=== PATIENT | female | born 1995 | race Two or more races ===

== ENCOUNTER 2023-04-22 04:48 | Emergency (ER) | payer BC ==
[~2023-04-22] VITALS: Ht 165.1 cm; Wt 50.0 kg
[2023-04-22 05:45] LABS: Basophils # (auto) 0 10 ^3/uL (0-0.2); Basophils % (auto) 0.5 % (0.0-2.0); Eosinophils # (auto) 0.2 10 ^3/uL (0-0.8); Eosinophils % (auto) 2.5 % (0.0-7.0); Hematocrit 42.5 % (36.0-46.0); Hemoglobin 14.4 g/dL (12.2-16.2); Lymphocytes # (auto) 3.4 10 ^3/uL (0.4-5.4); Lymphocytes % (auto) 42.6 % (10.0-50.0); Mean Corpuscular Hemoglobin 30.7 pg (28.0-32.0); Mean Corpuscular Hgb Conc. 33.9 g/dL (32.0-36.0); Mean Corpuscular Volume 90.5 fL (80.0-100.0); Monocytes # (auto) 0.6 10 ^3/uL (0-1.3); Monocytes % (auto) 7.2 % (0.0-12.0); Neutrophils # (auto) 3.7 10 ^3/uL (1.6-8.6); Neutrophils % (auto) 47.2 % (37.0-80.0); Nucleated Red Blood Cells % 0.1 %; Red Cell Distribution Width 12.6 % (11.8-14.3); White Blood Cell 7.9 10^3/uL (4.4-10.8)
[2023-04-22 06:01] LABS: Urine Bacteria NONE SEEN /hpf (None Seen); Urine Blood Negative /uL (Negative); Urine Specific Gravity 1.013 (1.001-1.035); Urine WBC 1 /hpf (0 - 5)
[2023-04-22 06:06] LABS: Albumin 3.6 g/dL (3.4-5.0); Calcium 8.7 mg/dL (8.5-10.1); Potassium 3.9 mmol/L (3.5-5.1)
[2023-04-22 06:09] LABS: BUN/Creatinine Ratio 12.3 (10.0-20.0); Bilirubin, Total 0.4 mg/dL (0.2-1.0)
[2023-04-22] MEDS ORDERED: TRAM50TA2 PO (09:25)
[2023-04-22 09:39] VITALS: BP 117/70; PULSE 87; RESP 16; TEMP 97.9; O2SAT 100
== END 2023-04-22 09:42 | disposition home or self-care (01) ==
LOC: ER 04:48
DX: R10.31 Right lower quadrant pain (principal); R10.2 Pelvic and perineal pain; Z98.890 Other specified postprocedural states
CPT/HCPCS: 36415; 76856; 80053; 81001; 83690; 84702; 85025

== ENCOUNTER 2023-09-03 10:01 | Emergency (ER) | payer BC ==
[~2023-09-03] VITALS: Ht 165.1 cm; Wt 48.6 kg
[~2023-09-03 10:01] MED LIST: TRAM50TA2 PO
[2023-09-03 11:41] VITALS: BP 120/85; PULSE 98; RESP 20; TEMP 98.4; O2SAT 97
== END 2023-09-03 13:18 | disposition home or self-care (01) ==
LOC: ER 10:01
DX: Z32.01 Encounter for pregnancy test, result positive (principal); R10.2 Pelvic and perineal pain; Z79.899 Other long term (current) drug therapy
CPT/HCPCS: 36415; 84702

== ENCOUNTER 2023-11-09 15:50 | Emergency (ER) | payer BC ==
[~2023-11-09] VITALS: Ht 165.1 cm; Wt 48.3 kg
[2023-11-09 16:37] VITALS: BP 119/55; PULSE 89; RESP 16; O2SAT 97
[2023-11-09 17:29] LABS: Basophils # (auto) 0 10 ^3/uL (0-0.2); Basophils % (auto) 0.5 % (0.0-2.0); Eosinophils # (auto) 0.2 10 ^3/uL (0-0.8); Eosinophils % (auto) 2.1 % (0.0-7.0); Hematocrit 41.4 % (36.0-46.0); Lymphocytes # (auto) 2.7 10 ^3/uL (0.4-5.4); Lymphocytes % (auto) 30.6 % (10.0-50.0); Mean Corpuscular Hemoglobin 30.4 pg (28.0-32.0); Mean Corpuscular Hgb Conc. 33.7 g/dL (32.0-36.0); Mean Corpuscular Volume 90.1 fL (80.0-100.0); Monocytes # (auto) 0.5 10 ^3/uL (0-1.3); Monocytes % (auto) 6.1 % (0.0-12.0); Neutrophils # (auto) 5.3 10 ^3/uL (1.6-8.6); Neutrophils % (auto) 60.7 % (37.0-80.0); Red Cell Distribution Width 13.4 % (11.8-14.3); White Blood Cell 8.8 10^3/uL (4.4-10.8)
[2023-11-09 18:39] LABS: Urine Bacteria NONE SEEN /hpf (None Seen); Urine Blood Negative /uL (Negative); Urine Clarity Clear (Clear); Urine Color Colorless (Yellow); Urine Protein, UAD Negative (Negative); Urine Specific Gravity 1.006 (1.001-1.035); Urine Urobilinogen Normal (Negative); Urine WBC <1 /hpf (0 - 5)
== END 2023-11-10 00:14 | disposition home or self-care (01) ==
LOC: ER 15:50
DX: Z34.01 Encounter for supervision of normal first pregnancy, first trimester (principal); R10.2 Pelvic and perineal pain; Z3A.13 13 weeks gestation of pregnancy; Z98.890 Other specified postprocedural states; Z79.899 Other long term (current) drug therapy
CPT/HCPCS: 36415; 76801; 81001; 84702; 85025; 86900; 86901

== ENCOUNTER → 2023-12-18 | Outpatient (CLI) | payer BC | END | disposition home or self-care (01) | LOC: LAB 09:11 | PROVIDERS: ATTEND Obstetrics & Gynecology | DX: Z34.82 Encounter for supervision of other normal pregnancy, second trimester (principal); Z3A.18 18 weeks gestation of pregnancy | CPT/HCPCS: 36415; 87340 ==

== ENCOUNTER 2024-03-08 12:15 | Observation (INO) | payer BC ==
[~2024-03-08] VITALS: Ht 165.1 cm; Wt 59.6 kg
[2024-03-08] MEDS: LACTATED RINGER'S 1,000 ML IV ONE (13:55)
[2024-03-08] MEDS: NIFEdipine 10 MG CAP PO ONE (15:01)
[2024-03-08] MEDS: TERBUTALINE SULFATE 1 MG/ML 1ML VIAL SC ONE (15:02)
[2024-03-08] MEDS ORDERED: PREN-96 PO (15:11)
[2024-03-08] MEDS ORDERED: NIF10C PO (15:20)
[2024-03-08] MEDS ORDERED: BETAMETHASONE ACET (30mg/5ml) 5ml Vial 6mg/ml IM ONE (15:30)
[2024-03-09] MEDS ORDERED: NIF10C PO (17:47)
== END 2024-03-08 16:04 | disposition home or self-care (01) ==
LOC: LDRP 12:15
PROVIDERS: ADMIT Obstetrics & Gynecology; ATTEND Obstetrics & Gynecology
DX: O60.03 Preterm labor without delivery, third trimester (principal); O24.419 Gestational diabetes mellitus in pregnancy, unspecified control; Z3A.30 30 weeks gestation of pregnancy
CPT/HCPCS: 59025; 81002; 94760; 96360; 96361; 96372; G0378; J0702; J3105

== ENCOUNTER 2024-03-09 13:00 | Observation (INO) | payer BC ==
[~2024-03-09] VITALS: Ht 165.1 cm; Wt 59.0 kg
[~2024-03-09 13:00] MED LIST changes: +NIF10C PO; +PREN-96 PO; -TRAM50TA2 PO
[2024-03-09] MEDS: BETAMETHASONE ACET (30mg/5ml) 5ml Vial 6mg/ml IM ONE (16:10)
[2024-03-09] MEDS ORDERED: NIF10C PO (17:47)
== END 2024-03-09 17:57 | disposition home or self-care (01) ==
LOC: UNDOADMOB 13:00 → LDRP 13:00
PROVIDERS: ADMIT Obstetrics & Gynecology; ATTEND Obstetrics & Gynecology
DX: O60.03 Preterm labor without delivery, third trimester (principal); O24.419 Gestational diabetes mellitus in pregnancy, unspecified control; Z3A.31 31 weeks gestation of pregnancy
CPT/HCPCS: 59025; 76815; 81002; 94760; 96372; G0378

== ENCOUNTER 2024-03-16 07:54 | Observation (INO) | payer BC | END 2024-03-16 10:11 | disposition home or self-care (01) | LOC: LDRP 09:00 → UNDOADMOB 09:00 → LDRP 09:13 | PROVIDERS: ADMIT Obstetrics & Gynecology; ATTEND Obstetrics & Gynecology | DX: O60.03 Preterm labor without delivery, third trimester (principal); O24.419 Gestational diabetes mellitus in pregnancy, unspecified control; Z3A.32 32 weeks gestation of pregnancy | CPT/HCPCS: 59025; 81002; G0378 ==

== ENCOUNTER 2024-03-22 20:19 | Observation (INO) | payer BC ==
[~2024-03-22] VITALS: Ht 165.1 cm; Wt 61.2 kg
[2024-03-22] MEDS: LACTATED RINGER'S 1,000 ML IV ONE (21:34)
[2024-03-22] MEDS: TERBUTALINE SULFATE 1 MG/ML 1ML VIAL SC SCH (21:41)
== END 2024-03-22 23:31 | disposition home or self-care (01) ==
LOC: LDRP 20:19
PROVIDERS: ADMIT Obstetrics & Gynecology; ATTEND Obstetrics & Gynecology
DX: O24.419 Gestational diabetes mellitus in pregnancy, unspecified control (principal); O60.03 Preterm labor without delivery, third trimester; Z3A.32 32 weeks gestation of pregnancy
CPT/HCPCS: 59025; 76817; 76818; 81002; 94760; 96360; 96361; 96372; G0378; J3105

== ENCOUNTER 2024-03-23 15:28 | Observation (INO) | payer BC ==
[~2024-03-23] VITALS: Ht 165.1 cm; Wt 62.1 kg
== END 2024-03-30 10:14 | disposition home or self-care (01) ==
LOC: UNDOADMOB 03-30 08:51 → LDRP 03-30 08:51
PROVIDERS: ADMIT Obstetrics & Gynecology; ATTEND Obstetrics & Gynecology
DX: O60.03 Preterm labor without delivery, third trimester (principal); O26.893 Other specified pregnancy related conditions, third trimester; R10.9 Unspecified abdominal pain; Z3A.34 34 weeks gestation of pregnancy
CPT/HCPCS: 59025; 76818; 81002; 94760; G0378

== ENCOUNTER 2024-04-06 08:00 | Observation (INO) | payer BC | END 2024-04-06 13:25 | disposition home or self-care (01) | LOC: LDRP 10:19 → UNDOADMOB 10:19 → LDRP 10:27 → UNDODISOB 13:25 | PROVIDERS: ADMIT Obstetrics & Gynecology; ATTEND Obstetrics & Gynecology | DX: O60.03 Preterm labor without delivery, third trimester (principal); O24.419 Gestational diabetes mellitus in pregnancy, unspecified control; Z3A.35 35 weeks gestation of pregnancy | CPT/HCPCS: 59025; 76818; 81002; G0378 ==

== ENCOUNTER 2024-04-13 08:05 | Observation (INO) | payer BC | END 2024-04-13 09:59 | disposition home or self-care (01) | LOC: LDRP 08:05 → UNDOADMOB 08:05 → LDRP 08:20 | PROVIDERS: ADMIT Obstetrics & Gynecology; ATTEND Obstetrics & Gynecology | DX: O24.419 Gestational diabetes mellitus in pregnancy, unspecified control (principal); O60.03 Preterm labor without delivery, third trimester; Z3A.36 36 weeks gestation of pregnancy | CPT/HCPCS: 59025; 76817; 76818; 81002; 82948; 82962; 94760; G0378 ==

== ENCOUNTER → 2024-04-13 | Outpatient (CLI) | payer BC ==
[2024-04-13 11:43] LABS: Basophils # (auto) 0 10 ^3/uL (0-0.2); Basophils % (auto) 0.4 % (0.0-2.0); Eosinophils # (auto) 0.1 10 ^3/uL (0-0.8); Eosinophils % (auto) 0.7 % (0.0-7.0); Hemoglobin 11.9 g/dL (12.2-16.2); Lymphocytes % (auto) 11.8 % (10.0-50.0); Mean Corpuscular Hemoglobin 30.2 pg (28.0-32.0); Mean Corpuscular Hgb Conc. 34.1 g/dL (32.0-36.0); Mean Corpuscular Volume 88.5 fL (80.0-100.0); Monocytes % (auto) 11.2 % (0.0-12.0); Neutrophils # (auto) 6.5 10 ^3/uL (1.6-8.6); Neutrophils % (auto) 75.9 % (37.0-80.0); Nucleated Red Blood Cells % 0.1 %; Red Blood Cells 3.95 10^6/uL (4.0-5.20); Red Cell Distribution Width 13.6 % (11.8-14.3); White Blood Cell 8.5 10^3/uL (4.4-10.8)
[2024-04-14 07:07] LABS: RPR Non Reactive (Non Reactive)
[2024-04-15 11:07] LABS: Chlamydia Trachomatis, NAA Negative (Negative); Neisseria gonorrhoeae, NAA Negative (Negative)
[2024-04-15 12:07] LABS: QuantiFERON-TB Gold Plus Negative (Negative)
== END | disposition home or self-care (01) ==
LOC: LAB 11:05
PROVIDERS: ATTEND Obstetrics & Gynecology
DX: Z34.80 Encounter for supervision of other normal pregnancy, unspecified trimester (principal); Z72.51 High risk heterosexual behavior
CPT/HCPCS: 36415; 83036; 85025; 86592

== ENCOUNTER 2024-04-19 17:50 | Observation (INO) | payer BC ==
[~2024-04-19] VITALS: Ht 165.1 cm; Wt 64.0 kg
== END 2024-04-19 19:39 | disposition home or self-care (01) ==
LOC: LDRP 17:50
PROVIDERS: ADMIT Obstetrics & Gynecology; ATTEND Obstetrics & Gynecology
DX: O47.03 False labor before 37 completed weeks of gestation, third trimester (principal); O24.410 Gestational diabetes mellitus in pregnancy, diet controlled; Z3A.36 36 weeks gestation of pregnancy; Z79.899 Other long term (current) drug therapy
CPT/HCPCS: 59025; 76818; 81002; 82948; 82962; G0378

== ENCOUNTER 2024-04-26 10:15 | Observation (INO) | payer BC | END 2024-04-26 11:55 | disposition home or self-care (01) | LOC: UNDOADMOB 10:15 → LDRP 10:15 | PROVIDERS: ADMIT Obstetrics & Gynecology; ATTEND Obstetrics & Gynecology | DX: O24.420 Gestational diabetes mellitus in childbirth, diet controlled (principal); Z3A.37 37 weeks gestation of pregnancy; Z79.899 Other long term (current) drug therapy; Z98.890 Other specified postprocedural states | CPT/HCPCS: 59025; 76818; 81002; 82948; 82962; 94760; G0378 ==

== ENCOUNTER 2024-04-30 12:07 | Observation (INO) | payer BC | END 2024-04-30 13:20 | disposition home or self-care (01) | LOC: LDRP 12:07 | PROVIDERS: ADMIT Obstetrics & Gynecology; ATTEND Obstetrics & Gynecology | DX: O62.9 Abnormality of forces of labor, unspecified (principal); O24.419 Gestational diabetes mellitus in pregnancy, unspecified control; O26.893 Other specified pregnancy related conditions, third trimester; R11.0 Nausea; Z3A.38 38 weeks gestation of pregnancy | CPT/HCPCS: 59025; 81002; 82948; 82962; 94760; G0378 ==

== ENCOUNTER 2024-05-03 10:10 | Observation (INO) | payer BC | END 2024-05-03 12:39 | disposition home or self-care (01) | LOC: LDRP 10:10 | PROVIDERS: ADMIT Obstetrics & Gynecology; ATTEND Obstetrics & Gynecology | DX: O24.419 Gestational diabetes mellitus in pregnancy, unspecified control (principal); Z3A.38 38 weeks gestation of pregnancy | CPT/HCPCS: 59025; 76818; 81002; 82948; 82962; 94760; G0378 ==

== ENCOUNTER 2024-05-06 16:35 | Observation (INO) | payer BC | END 2024-05-06 17:40 | disposition home or self-care (01) | LOC: LDRP 16:35 | PROVIDERS: ADMIT Obstetrics & Gynecology; ATTEND Obstetrics & Gynecology | DX: O62.9 Abnormality of forces of labor, unspecified (principal); Z3A.39 39 weeks gestation of pregnancy | CPT/HCPCS: 59025; 81002; 94760; G0378 ==

== ENCOUNTER 2024-05-10 14:13 | Inpatient (IN) | payer BC ==
[~2024-05-10] VITALS: Ht 165.1 cm; Wt 65.8 kg
[~2024-05-10 14:13] MED LIST changes: -NIF10C PO; +NIFE10CA52 PO
[2024-05-10] MEDS ORDERED: LIDOCAINE 2%HCL (LOCAL ANESTH.) INJ 20ML MDV IJ PRN (14:30)
[2024-05-10] MEDS ORDERED: NALBUPHINE HCL 10 MG/1ml INJECTION IV PRN (14:30)
[2024-05-10 15:12] LABS: Urine Bacteria None Seen /hpf (None Seen); Urine WBC None Seen /hpf (0 - 5)
[2024-05-10 15:18] LABS: Basophils # (auto) 0 10 ^3/uL (0-0.2); Basophils % (auto) 0.4 % (0.0-2.0); Eosinophils # (auto) 0.1 10 ^3/uL (0-0.8); Eosinophils % (auto) 0.9 % (0.0-7.0); Hematocrit 35.9 % (36.0-46.0); Hemoglobin 11.8 g/dL (12.2-16.2); Lymphocytes # (auto) 2.1 10 ^3/uL (0.4-5.4); Lymphocytes % (auto) 21.4 % (10.0-50.0); Mean Corpuscular Hemoglobin 29.3 pg (28.0-32.0); Mean Corpuscular Volume 88.8 fL (80.0-100.0); Monocytes # (auto) 0.7 10 ^3/uL (0-1.3); Monocytes % (auto) 7.5 % (0.0-12.0); Neutrophils # (auto) 6.8 10 ^3/uL (1.6-8.6); Neutrophils % (auto) 69.8 % (37.0-80.0); Nucleated Red Blood Cells % 0.2 %; Red Blood Cells 4.05 10^6/uL (4.0-5.20); Red Cell Distribution Width 15.1 % (11.8-14.3); White Blood Cell 9.7 10^3/uL (4.4-10.8)
[2024-05-10 15:20] LABS: Urine Blood Negative /uL (Negative); Urine Clarity Clear (Clear); Urine Color Colorless (Yellow); Urine Protein, UAD Negative (Negative); Urine Specific Gravity 1.005 (1.001-1.035); Urine Urobilinogen Normal (Negative); Urine pH 6.5 (5.0-9.0)
[2024-05-10 15:42] LABS: INR 0.97 (0.9-1.15); Prothrombin Time 10.3 sec (9.3-11.8)
[2024-05-10 15:44] LABS: Amphetamine Screen, Urine Neg (NEGATIVE)
[2024-05-10 15:45] LABS: Barbiturate Scree,Urine Neg (NEGATIVE); Benzodiazephine Screen, Urine Neg (NEGATIVE); Cannabinoid Screen, Urine Neg (NEGATIVE); Cocaine Screen, Urine Neg (NEGATIVE); Opiate Scree,Urine Neg (NEGATIVE); Phencyclidine Screen, Urine Neg (NEGATIVE)
[2024-05-10 15:49] LABS: Alanine Aminotransferase 16 U/L (7-40); Albumin 3.5 g/dL (3.2-4.8); Alkaline Phosphatase 162 U/L (46-116); Anion Gap 7 (5-15); Aspartate Aminotransferase 16 U/L (13-40); BUN/Creatinine Ratio 10.7 (10.0-20.0); Bilirubin, Total 0.4 mg/dL (0.2-1.0); Blood Urea Nitrogen 6 mg/dL (9-23); Calcium 8.9 mg/dL (8.7-10.4); Carbon Dioxide 25 mmol/L (20-30); Chloride 106 mmol/L (98-107); Glucose 84 mg/dL (74-106); Potassium 4.2 mmol/L (3.5-5.1); Sodium 138 mmol/L (136-145); Total Protein 6.2 g/dL (5.7-8.2)
[2024-05-10] MEDS: LACTATED RINGER'S 1,000 ML IV SCH (15:49)
[2024-05-10] MEDS: miSOPROStol 50 MCG per PRE-CUT 1/2 TAB PO PRN (16:28)
[2024-05-10] MEDS: DERMOPLAST 60ML BOTTLE TOP PRN (16:37)
[2024-05-10] MEDS: WITCH HAZEL-GLYCERIN PAD TOP PRN (16:37)
[2024-05-10] MEDS: PHISODERM TOP SOLN 240ML BTL TOP PRN (16:37)
[2024-05-10] MEDS ORDERED: miSOPROStol 100 mcg TAB PR PRN (19:15)
[2024-05-10] MEDS ORDERED: METHYLERGONOVINE MALEATE 0.2 MG/ML AMP IM PRN (19:15)
[2024-05-10] MEDS ORDERED: ONDANSETRON HCL 4 MG/2 ML VIAL IV PRN ×2 (19:15→23:15)
[2024-05-10] MEDS ORDERED: miSOPROStol 100 mcg TAB SL PRN (19:15)
[2024-05-10] MEDS ORDERED: CARBOPROST TROMETHAMINE 250 MCG/1ML VIAL IM PRN (19:15)
[2024-05-10] MEDS: NALOXONE HCL 0.4 MG/ML VIAL IV ONE (21:00)
[2024-05-10] MEDS: ePHEDrine SULFATE 50 MG/ML AMP IV ONE (21:00)
[2024-05-10] MEDS: LACTATED RINGER'S 1,000 ML IV ONE (21:09)
[2024-05-10] MEDS: ROPIVACAINE HCL 200 ML ONE (21:38)
[2024-05-10] MEDS: DIPHENOXYLATE W/ATROPINE 2.5 MG TAB PO SCH (22:00)
[2024-05-10] MEDS ORDERED: TERBUTALINE SULFATE 1 MG/ML 1ML VIAL SC PRN (22:45)
[2024-05-10] MEDS ORDERED: ceFAZolin 1GM/50ML 50 ML IV SCH (23:15)
[2024-05-10] MEDS ORDERED: LACT. RINGERS/OXYTOCIN 20UNITS 1,000 ML IV ONE (23:15)
[2024-05-10] MEDS ORDERED: GUM (CHEWING) 1 GUM CHEW CHEW ONE (23:15)
[2024-05-10] MEDS: LACT. RINGERS/OXYTOCIN 20UNITS 1,000 ML IV SCH (23:23)
[2024-05-11 07:22] LABS: Basophils # (auto) 0 10 ^3/uL (0-0.2); Basophils % (auto) 0.3 % (0.0-2.0); Eosinophils # (auto) 0.1 10 ^3/uL (0-0.8); Eosinophils % (auto) 0.6 % (0.0-7.0); Hematocrit 34.7 % (36.0-46.0); Hemoglobin 11.9 g/dL (12.2-16.2); Lymphocytes % (auto) 16.4 % (10.0-50.0); Mean Corpuscular Hemoglobin 29.9 pg (28.0-32.0); Mean Corpuscular Hgb Conc. 34.2 g/dL (32.0-36.0); Mean Corpuscular Volume 87.4 fL (80.0-100.0); Monocytes # (auto) 0.8 10 ^3/uL (0-1.3); Monocytes % (auto) 6.2 % (0.0-12.0); Neutrophils # (auto) 9.4 10 ^3/uL (1.6-8.6); Neutrophils % (auto) 76.5 % (37.0-80.0); Nucleated Red Blood Cells % 0.1 %; Red Blood Cells 3.98 10^6/uL (4.0-5.20); Red Cell Distribution Width 15.4 % (11.8-14.3); White Blood Cell 12.3 10^3/uL (4.4-10.8)
[2024-05-11] MEDS: ROPIVACAINE HCL 200 ML ONE (12:46)
[2024-05-11] MEDS: MINERAL OIL TOPICAL 10ml TOP ONE (17:26)
[2024-05-11] MEDS ORDERED: ONDANSETRON ODT 4 MG TAB PO PRN (18:00)
[2024-05-11] MEDS ORDERED: ACETAMINOPHEN 325 MG TAB PO PRN (18:00)
[2024-05-11] MEDS: LACT. RINGERS/OXYTOCIN 20UNITS 500 ML IV ONE ×2 (18:07→18:08)
[2024-05-11] MEDS: IBUPROFEN 600 MG TAB PO PRN (19:50)
[2024-05-11 20:00] VITALS: BP 116/58; PULSE 84; RESP 18; TEMP 98; O2SAT 95
[2024-05-11] MEDS: DOCUSATE SOD 100 MG CAP PO SCH (22:41)
[2024-05-11 23:08] VITALS: BP 103/70; PULSE 89; RESP 18; TEMP 98; O2SAT 97
[2024-05-12] MEDS ORDERED: DOCU-265 PO (01:37)
[2024-05-12] MEDS ORDERED: IBU600T PO (01:37)
[2024-05-12 03:04] VITALS: BP 95/59; PULSE 80; RESP 16; TEMP 97.8; O2SAT 99
[2024-05-12 06:06] LABS: RPR Non Reactive (Non Reactive)
[2024-05-12 07:00] VITALS: BP 92/53; PULSE 91; RESP 17; TEMP 98.6; O2SAT 98
[2024-05-12 07:58] LABS: Basophils # (auto) 0 10 ^3/uL (0-0.2); Basophils % (auto) 0.2 % (0.0-2.0); Eosinophils # (auto) 0.2 10 ^3/uL (0-0.8); Eosinophils % (auto) 1.1 % (0.0-7.0); Hematocrit 30.5 % (36.0-46.0); Hemoglobin 10.2 g/dL (12.2-16.2); Lymphocytes # (auto) 1.8 10 ^3/uL (0.4-5.4); Lymphocytes % (auto) 9.3 % (10.0-50.0); Mean Corpuscular Hemoglobin 29.7 pg (28.0-32.0); Mean Corpuscular Hgb Conc. 33.6 g/dL (32.0-36.0); Mean Corpuscular Volume 88.4 fL (80.0-100.0); Monocytes # (auto) 1.1 10 ^3/uL (0-1.3); Neutrophils # (auto) 15.8 10 ^3/uL (1.6-8.6); Neutrophils % (auto) 83.4 % (37.0-80.0); Red Blood Cells 3.45 10^6/uL (4.0-5.20); Red Cell Distribution Width 15.4 % (11.8-14.3); White Blood Cell 18.9 10^3/uL (4.4-10.8)
[2024-05-12 11:00] VITALS: BP 94/60; PULSE 87; RESP 15; TEMP 98.6; O2SAT 98
[2024-05-12 15:26] VITALS: BP 103/56; PULSE 99; RESP 16; TEMP 98.8; O2SAT 98
[2024-05-12 18:45] VITALS: BP 110/66; PULSE 99; RESP 17; TEMP 98; O2SAT 99
[2024-05-12 20:33] VITALS: BP 114/68; PULSE 62; RESP 16; TEMP 98; O2SAT 98
== END 2024-05-12 20:33 | disposition home or self-care (01) | DRG 807 ==
LOC: LDRP 14:13
PROVIDERS: ADMIT Obstetrics & Gynecology; ATTEND Obstetrics & Gynecology
PROC: 10E0XZZ Delivery of Products of Conception, External Approach (ICD-10-PCS; principal; 2024-05-11)
PROC: 3E0DXGC Introduction of Other Therapeutic Substance into Mouth and Pharynx, External Approach (ICD-10-PCS; 2024-05-11)
PROC: 0UQMXZZ Repair Vulva, External Approach (ICD-10-PCS; 2024-05-11)
PROC: 3E0R3BZ Introduction of Anesthetic Agent into Spinal Canal, Percutaneous Approach (ICD-10-PCS; 2024-05-11)
PROC: 00HU33Z Insertion of Infusion Device into Spinal Canal, Percutaneous Approach (ICD-10-PCS; 2024-05-11)
DX: O69.81X0 Labor and delivery complicated by cord around neck, without compression, not applicable or unspecified (principal); Z37.0 Single live birth; O24.420 Gestational diabetes mellitus in childbirth, diet controlled; O70.0 First degree perineal laceration during delivery; Z3A.39 39 weeks gestation of pregnancy
CPT/HCPCS: 36415; 59025; 59409; 62282; 80053; 80307; 81001; 81002; 82948; 82962; 85025; 85610; 85730; 86592; 86803; 86850; 86900; 86901; 94760; 94762; 96360; 96361; 96365; 96366; G0378; J2590